=== PATIENT | female | born 1965 | race Caucasian/White ===

== ENCOUNTER 2016-07-22 09:34 | Emergency (ER) | payer OTHER ==
[2016-07-22] MEDS ORDERED: Sodium Chloride 0.9% 10 ML Syringe FLUSH PRN (09:44)
--- NOTE | 2016-07-22 09:51 | EDM.PDOC ---
ED HPI GENERAL MEDICAL PROBLEM - General Chief Complaint: Trauma Stated Complaint: [facility] Time Seen by Provider: 07/22/16 09:35 Source of Information: Reports: Patient, RN Notes Reviewed - History of Present Illness INITIAL COMMENTS - FREE TEXT/NARRATIVE: 51-year-old lady was riding a horse in the [facility] awhile ago this morning when horse "reared, fill on top of her after she had fallen and hit the ground. She states the first came down on her left hip and left pelvis area. SHe had immediate pain of the hip and pelvis. Not sure how transport all worked out but she has been brought in by the [facility] having received half a milligram Dilaudid IV in route. The Dilaudid has helped a lot, she was having severe discomfort but the pain is much more tolerable at time of my exam. She denies head neck or back pain or injury. No chest pain or difficulty breathing. No LOC. She initially did have some discomfort and paresthesias in her left foot and ankle but those are gone. Right Lower Ankle Pain Score (Numeric/FACES): 4 Left Hip Pain Score (Numeric/FACES): 4 - Related Data Allergies Allergy/AdvReac Type Severity Reaction Status Date / Time bupropion [From Wellbutrin] Allergy Rash Verified 07/22/16 09:44 Home Meds: Home Meds Ashwagandha 1 tab PO DAILY 07/22/16 [History] Omeprazole 20 mg PO DAILY 07/22/16 [History] PARoxetine HCl [Paxil] 30 mg PO DAILY 07/22/16 [History] PARoxetine HCl [Paxil] 30 mg PO DAILY #5 tablet 07/22/16 [Rx] Thyroid,Pork [CAMP DISHW[employer]ER Thyroid] 1 tab PO DAILY 07/22/16 [History] Review of Systems - Review of Systems Review Of Systems: See Below Constitutional: Reports: No Symptoms Eyes: Reports: No Symptoms Ears: Reports: No Symptoms Nose: Reports: No Symptoms Mouth/Throat: Reports: No Symptoms Respiratory: Denies: Shortness of Breath, Wheezing, Pleuritic Chest Pain Cardiovascular: Denies: Chest Pain GI/Abdominal: Denies: Abdominal Pain, Nausea, Vomiting Musculoskeletal: Reports: Joint Pain (Left hip). Denies: Neck Pain, Shoulder Pain, Back Pain Skin: Reports: No Symptoms Neurological: Reports: Numbness (Left foot, gone) ED EXAM, GENERAL - Physical Exam Exam: See Below General Appearance: Alert, Mild Distress Throat/Mouth: Normal Inspection, Normal Oropharynx Head: Atraumatic. No: Facial Swelling Neck: Supple, Full Range of Motion Respiratory/Chest: No Respiratory Distress, Lungs Clear, Normal Breath Sounds Cardiovascular: Regular Rate, Rhythm GI/Abdominal: Soft, Non-Tender Back Exam: No: Paraspinal Tenderness, Vertebral Tenderness Extremities: Leg Pain (There is some tenderness of the left hip, no tenderness to lateral compression of the pelvis) Neurological: Alert, Oriented, No Motor/Sensory Deficits Skin Exam: Warm, Dry, Normal Color Course - Vital Signs Last Recorded V/S: Last Vital Signs Temp 97.8 F 07/22/16 09:38 Pulse 75 07/22/16 12:02 Resp 19 07/22/16 12:02 BP 128/77 07/22/16 12:02 Pulse Ox 96 07/22/16 12:02 - Orders/Labs/Meds Orders: Active Orders 24 hr Category Date Time Status Peripheral IV Care [RC] . DIRECTED Care 07/22/16 09:44 Active Durable Medical Equipment for Discharge [DME for Oth 07/22/16 10:57 Ordered Discharge] [COMM] Stat Peripheral IV Insertion Adult [OM.PC] Stat Oth 07/22/16 09:44 Ordered Labs: Laboratory Tests 07/22/16 Range/Units 09:55 WBC 11.30 H (3.98-10.04) K/mm3 RBC 4.82 (3.98-5.22) M/mm3 Hgb 14.5 (11.2-15.7) gm/L Hct 43.3 (34.1-44.9) % MCV 89.8 (79.4-94.8) fl MCH 30.1 (25.6-32.2) pg MCHC 33.5 (32.2-35.5) g/dl RDW Std Deviation 43.3 (36.4-46.3) fL Plt Count 308 (182-369) K/mm3 MPV 10.2 (9.4-12.3) fl Neut % (Auto) 76.4 H (34.0-71.1) % Lymph % (Auto) 15.4 L (19.3-51.7) % [place] % (Auto) 5.8 (4.7-12.5) % Eos % (Auto) 1.4 (0.7-5.8) Baso % (Auto) 0.4 (0.1-1.2) % Neut # (Auto) 8.62 H (1.56-6.13) K/mm3 Lymph # (Auto) 1.74 (1.18-3.74) K/mm3 [place] # (Auto) 0.66 H (0.24-0.36) K/mm3 Eos # (Auto) 0.16 (0.04-0.36) K/mm3 Baso # (Auto) 0.05 (0.01-0.08) K/mm3 Meds: Medications Discontinued Medications Generic Name Dose Route Start Last Admin Trade Name Freq PRN Reason Stop Dose Admin Hydromorphone HCl 0.5 mg 07/22/16 11:04 07/22/16 11:49 Dilaudid IVPUSH 07/22/16 11:05 0.5 mg ONETIME ONE Administration Hydromorphone HCl Confirm 07/22/16 11:54 07/22/16 12:04 Dilaudid Administered 07/22/16 11:55 Not Given Dose 0.5 mg .ROUTE .STK-MED ONE Sodium Chloride 10 ml 07/22/16 09:44 07/22/16 11:48 Saline Flush FLUSH 10 ml ASDIRECTED PRN Administration Keep Vein Open - Re-Assessments/Exams Free Text/Narrative Re-Assessment/Exam: 07/22/16 11:45. X-rays of the hip and pelvis do not show a hip fracture. However there is fracture of the inferior ramus left pelvis and probable hairline fracture of the superior ramus. There was very slight displacement only of the inferior ramus fracture. No other fracture visible. 07/22/16 14:18. Patient did have fairly good relief of the half milligram Dilaudid given IV prior to arrival. We did give another 0.5 mg IV prior to departure. She's going to use crutches. She is from [place]. A friend will be driving her back. They have a camper-type unit that she will be able to rest in while they are driving. Discharge instructions as documented Departure - Departure Time of Disposition: 11:20 Disposition: Home, Self-Care 01 Condition: fair Clinical Impression: Fracture, pelvis closed Qualifiers: Encounter type: initial encounter Pelvic bone location: pubis Sublocation of pubis: unspecified portion of pubis Laterality: left Qualified Code(s): S32.502A - Unspecified fracture of left pubis, initial encounter for closed fracture - Discharge Information Prescriptions: PARoxetine HCl [Paxil] 30 mg PO DAILY #5 tablet Instructions: Simple Pelvic Fracture, Adult Referrals: PCP,Not In Area [Primary Care Provider] - Forms: ED Department Discharge Additional Instructions: rest leg and hip, use crutches with minimal weightbearing initially as tolerated , moves slowly and carefully, alternate ice and heat as needed, Tylenol every 6- 8 hours for mild to moderate discomfort or hydrocodone if needed for more severe pain, did not take Tylenol and hydrocodone the same time, after 2 or 3 days she can safely start alternating Advil and Tylenol or Advil and hydrocodone. Followup with your regular medical provider get back home. It is also recommended that he do start physical therapy and allow them to help to rehabilitation. This will take about 6-8 weeks to heal completely. - My Orders Last 24 Hours: My Active Orders 07/22/16 09:44 Peripheral IV Care [RC] . DIRECTED Peripheral IV Insertion Adult [OM.PC] Stat 07/22/16 10:57 Durable Medical Equipment for Discharge [DME for Discharge] [COMM] Stat - Assessment/Plan Last 24 Hours: My Active Orders 07/22/16 09:44 Peripheral IV Care [RC] . DIRECTED Peripheral IV Insertion Adult [OM.PC] Stat 07/22/16 10:57 Durable Medical Equipment for Discharge [DME for Discharge] [COMM] Stat
[2016-07-22] MEDS ORDERED: HYDROmorphone 0.5 MG/0.5 ML Syringe IVPUSH ONE (11:04)
--- NOTE | 2016-07-22 11:27 | CR ---
Pelvis and left hip: AP view of the pelvis was obtained as well as AP and lateral views of the left hip. Joint spaces within both hips are preserved. Sacroiliac joints are within normal limits. Fracture is identified within the inferior and superior pubic ramus. No additional fracture or other abnormality is appreciated. Impression: 1. Fractures within the inferior and superior pubic ramus on the left side. 2. AP pelvis and two-view left hip study are otherwise unremarkable. Diagnostic code #2
[2016-07-22] MEDS ORDERED: HYDROmorphone 0.5 MG/0.5 ML Syringe ONE (11:54)
[2016-07-22 12:04] VITALS: BP 128/77
== END 2016-07-22 12:49 | disposition home or self-care (01) ==
LOC: JD.ED 09:34
DX: S32.592A Other specified fracture of left pubis, initial encounter for closed fracture (principal); Z79.899 Other long term (current) drug therapy; V80.010A Animal-rider injured by fall from or being thrown from horse in noncollision accident, initial encounter; Y93.52 Activity, horseback riding; Y92.89 Other specified places as the place of occurrence of the external cause
CPT/HCPCS: 36415; 73502; 85025; 96374; 99284; J7050; J1170